=== PATIENT | female | born 1980 | race Caucasian/White ===

== ENCOUNTER 2021-02-07 15:28 | Emergency (ER) | payer OTHER ==
[~2021-02-07] VITALS: Ht 162.6 cm; Wt 57.2 kg
[~2021-02-07 15:28] MED LIST: ACIDOPHILUS1 EAC2 PO
[2021-02-07] MEDS ORDERED: KETO10TA2 PO (17:50)
[2021-02-07] MEDS ORDERED: NORFLEX100MG PO (17:50)
== END 2021-02-07 17:54 | disposition home or self-care (01) ==
LOC: ER 15:28
DX: M54.2 Cervicalgia (principal); M62.838 Other muscle spasm